=== PATIENT | male | born 1965 | race Caucasian/White ===

== ENCOUNTER 2021-08-06 01:32 | Inpatient (IN) | payer OTHER ==
[2021-08-06 03:15] LABS: EOS % 4.4 % (0-4.5); HEMATOCRIT 30.6 % (35.4-49); HEMOGLOBIN 9.6 GM/dL (11.7-16.9); LYMPH % 13.1 % (8-40); MCH 23.4 pg (25.7-33.7); MCHC 31.2 g/dl (32.0-35.9); MEAN PLT VOLUME 6.9 fl (7.5-11.1); MONO % 7.2 % (3.8-10.2); NEUT % 74.3 % (42.8-82.8); PLATELET COUNT 265 10^3/uL (134-434); RBC 4.08 M/mm3 (4.00-5.60); RDW 20.8 % (11.9-15.9)
[2021-08-06 03:31] LABS: CHLORIDE 107 mmol/L (98-107); SODIUM 144 mmol/L (136-145)
[2021-08-06 03:35] LABS: ALBUMIN 2.8 g/dl (3.4-5.0); ANION GAP 5 MMOL/L (8-16); BLOOD UREA NITROGEN 13.8 mg/dL (7-18); CALCIUM 8.3 mg/dL (8.5-10.1); CO2 32 mmol/L (21-32); GLUCOSE,RANDOM 109 mg/dL (74-106)
[2021-08-06 03:36] LABS: SGPT/ALT 17 U/L (13-61)
[2021-08-06 03:37] LABS: CREATININE 0.6 mg/dL (0.55-1.3); SGOT/AST 13 U/L (15-37)
[2021-08-06 03:38] LABS: BILIRUBIN,TOTAL 0.9 mg/dL (0.2-1)
[2021-08-06 03:40] LABS: ALK PHOS 214 U/L (45-117)
[2021-08-06] MEDS ORDERED: FUROSEMIDE 40 MG/4 ML INJECTABLE VIAL IVPUSH ONE (03:41)
[2021-08-06] MEDS ORDERED: FUROSEMIDE 40 MG/4 ML INJECTABLE VIAL ONE (03:51)
[2021-08-06 04:10] LABS: INR 2.71 (0.83-1.09); PROTHROMBIN TIME (PATIENT) 31.5 SEC (9.7-13.0)
[2021-08-06 04:12] LABS: ACTIVATED PTT 40.6 SECONDS (25.2-36.5)
[2021-08-06 05:58] LABS: ANISOCYTOSIS 2+; MACROCYTOSIS 0; OVALOCYTE 1+; PLATELET ESTIMATE NORMAL
[2021-08-06] MEDS ORDERED: FUROSEMIDE 40 MG/4 ML INJECTABLE VIAL IVPUSH SCH (12:00)
[2021-08-06] MEDS ORDERED: DOCUSATE SODIUM 100 MG CAPSULE (FP) PO PRN (12:24)
[2021-08-06] MEDS ORDERED: METOPROLOL TARTRATE 50 MG TABLET (FP) PO ONE (12:30)
[2021-08-06 13:13] VITALS: BMI 31.6
[2021-08-06] MEDS: RIVAROXABAN 20 MG TABLET PO SCH (17:53)
[2021-08-06] MEDS ORDERED: ATORVASTATIN CA 40 MG TABLET (FP) PO SCH (22:00)
[2021-08-06 23:20] LABS: CHOLESTEROL 131 mg/dL (50-200); TRIGLYCERIDES 65 mg/dL (0-150)
[2021-08-06 23:21] LABS: LDL CHOLESTEROL (ONLY SJRH) 73 mg/dL (5-100)
[2021-08-06 23:23] LABS: HDL CHOLESTEROL 50 mg/dL (40-60)
[2021-08-07 00:13] LABS: IRON SERUM 31 ug/dL (50-175); TOTAL IRON BINDING CAPACITY 345 ug/dL (250-450)
[2021-08-07] MEDS ORDERED: MELATONIN 5 MG TABLETS PO ONE (01:25)
[2021-08-07 08:00] LABS: BASO % 0.9 % (0-2.0); EOS % 3.7 % (0-4.5); HEMATOCRIT 34.9 % (35.4-49); HEMOGLOBIN 10.6 GM/dL (11.7-16.9); LYMPH % 20.8 % (8-40); MCH 23.1 pg (25.7-33.7); MCHC 30.4 g/dl (32.0-35.9); MEAN CELL VOLUME 75.9 fl (80-96); MEAN PLT VOLUME 7.5 fl (7.5-11.1); MONO % 7.5 % (3.8-10.2); NEUT % 67.1 % (42.8-82.8); PLATELET COUNT 308 10^3/uL (134-434); RDW 20.8 % (11.9-15.9); WHITE BLOOD COUNT 5.7 K/mm3 (4.0-10.0)
[2021-08-07 08:05] LABS: INR 3.36 (0.83-1.09); PROTHROMBIN TIME (PATIENT) 39.1 SEC (9.7-13.0)
[2021-08-07 08:14] LABS: CALCIUM 8.4 mg/dL (8.5-10.1)
[2021-08-07 08:15] LABS: BLOOD UREA NITROGEN 14.5 mg/dL (7-18); MAGNESIUM 2.6 mg/dL (1.8-2.4)
[2021-08-07 08:18] LABS: CREATININE 0.7 mg/dL (0.55-1.3); PHOSPHOROUS 4.7 mg/dL (2.5-4.9)
[2021-08-07 08:19] LABS: TOT PROT 6.3 g/dl (6.4-8.2)
[2021-08-07] MEDS: FUROSEMIDE 40 MG/4 ML INJECTABLE VIAL IVPUSH SCH (09:40)
[2021-08-07] MEDS: RIVAROXABAN 20 MG TABLET PO SCH (18:02)
[2021-08-07] MEDS: MELATONIN 5 MG TABLETS PO PRN (21:30)
[2021-08-07] MEDS: ATORVASTATIN CA 40 MG TABLET (FP) PO SCH (21:30)
[2021-08-08] MEDS: FUROSEMIDE 40 MG/4 ML INJECTABLE VIAL IVPUSH SCH (09:18)
[2021-08-08 11:58] LABS: HEMATOCRIT 34.3 % (35.4-49); HEMOGLOBIN 10.5 GM/dL (11.7-16.9); MCH 23.1 pg (25.7-33.7); MCHC 30.5 g/dl (32.0-35.9); MEAN CELL VOLUME 75.6 fl (80-96); MEAN PLT VOLUME 7.4 fl (7.5-11.1); PLATELET COUNT 362 10^3/uL (134-434); RBC 4.53 M/mm3 (4.00-5.60); RDW 20.8 % (11.9-15.9)
[2021-08-08 12:25] LABS: ALBUMIN 3.1 g/dl (3.4-5.0); CALCIUM 8.6 mg/dL (8.5-10.1); MAGNESIUM 2.8 mg/dL (1.8-2.4)
[2021-08-08 12:26] LABS: BLOOD UREA NITROGEN 17.5 mg/dL (7-18)
[2021-08-08 12:28] LABS: CREATININE 0.7 mg/dL (0.55-1.3)
[2021-08-08 12:30] LABS: TOT PROT 6.6 g/dl (6.4-8.2)
[2021-08-08] MEDS: RIVAROXABAN 20 MG TABLET PO SCH (17:42)
[2021-08-08] MEDS: MELATONIN 5 MG TABLETS PO PRN (21:36)
[2021-08-08] MEDS: ATORVASTATIN CA 40 MG TABLET (FP) PO SCH (21:36)
[2021-08-09 07:41] LABS: HEMATOCRIT 34.3 % (35.4-49); HEMOGLOBIN 10.5 GM/dL (11.7-16.9); MCHC 30.5 g/dl (32.0-35.9); MEAN CELL VOLUME 75.3 fl (80-96); MEAN PLT VOLUME 7.6 fl (7.5-11.1); PLATELET COUNT 338 10^3/uL (134-434); RBC 4.55 M/mm3 (4.00-5.60); RDW 20.7 % (11.9-15.9)
[2021-08-09 07:50] LABS: CALCIUM 8.6 mg/dL (8.5-10.1)
[2021-08-09 07:51] LABS: ALBUMIN 3.1 g/dl (3.4-5.0); BLOOD UREA NITROGEN 16.9 mg/dL (7-18); MAGNESIUM 2.8 mg/dL (1.8-2.4)
[2021-08-09 07:53] LABS: CREATININE 0.6 mg/dL (0.55-1.3)
[2021-08-09 07:54] LABS: TOT PROT 6.7 g/dl (6.4-8.2)
[2021-08-09 07:55] LABS: BILIRUBIN,TOTAL 0.8 mg/dL (0.2-1)
[2021-08-09] MEDS: FUROSEMIDE 40 MG/4 ML INJECTABLE VIAL IVPUSH SCH (09:31)
[2021-08-09] MEDS ORDERED: ALBUTEROL SO4 2.5/IPRATROPIUM 0.5 INH SOL 3 ML VIAL.NEB. NEB PRN (16:45)
[2021-08-09] MEDS: DIGOXIN 0.125 MG TABLET PO SCH (17:32)
[2021-08-09] MEDS: RIVAROXABAN 20 MG TABLET PO SCH (18:07)
[2021-08-09] MEDS ORDERED: SODIUM PHOSPHATE/NA BIPHOS 133 ML ENEMA PR ONE (21:31)
[2021-08-09] MEDS: POLYETHYLENE GLYCOL (HEALTHYLAX) 3350 17 GM PACKET PO SCH (22:46)
[2021-08-09] MEDS: MELATONIN 5 MG TABLETS PO PRN (22:47)
[2021-08-09] MEDS: ATORVASTATIN CA 40 MG TABLET (FP) PO SCH (22:47)
[2021-08-10 07:58] LABS: HEMATOCRIT 34.1 % (35.4-49); HEMOGLOBIN 10.7 GM/dL (11.7-16.9); MCH 23.6 pg (25.7-33.7); MCHC 31.4 g/dl (32.0-35.9); MEAN CELL VOLUME 75.2 fl (80-96); MEAN PLT VOLUME 7.2 fl (7.5-11.1); PLATELET COUNT 321 10^3/uL (134-434); RBC 4.54 M/mm3 (4.00-5.60); RDW 20.3 % (11.9-15.9); WHITE BLOOD COUNT 6.3 K/mm3 (4.0-10.0)
[2021-08-10 08:00] LABS: CALCIUM 8.6 mg/dL (8.5-10.1)
[2021-08-10 08:01] LABS: ALBUMIN 3.2 g/dl (3.4-5.0); BLOOD UREA NITROGEN 19.6 mg/dL (7-18)
[2021-08-10 08:04] LABS: CREATININE 0.7 mg/dL (0.55-1.3); PHOSPHOROUS 4.3 mg/dL (2.5-4.9)
[2021-08-10 08:05] LABS: BILIRUBIN,TOTAL 0.9 mg/dL (0.2-1)
[2021-08-10 08:06] LABS: TOT PROT 6.8 g/dl (6.4-8.2)
[2021-08-10 08:19] VITALS: BP 127/89; PULSE 85; TEMP 97.7
[2021-08-10] MEDS: DIGOXIN 0.125 MG TABLET PO SCH (09:31)
[2021-08-10] MEDS: FUROSEMIDE 40 MG/4 ML INJECTABLE VIAL IVPUSH SCH (09:31)
[2021-08-10] MEDS: POLYETHYLENE GLYCOL (HEALTHYLAX) 3350 17 GM PACKET PO SCH (09:35)
== END 2021-08-10 13:53 | disposition home or self-care (01) | DRG 291 ==
LOC: JER 01:32 → JERBED 06:15 → J7W 10:32 → J4W 21:25
PROVIDERS: ADMIT Internal Medicine
DX: I11.0 Hypertensive heart disease with heart failure (principal); I50.33 Acute on chronic diastolic (congestive) heart failure; I48.91 Unspecified atrial fibrillation; I25.10 Atherosclerotic heart disease of native coronary artery without angina pectoris; Z86.711 Personal history of pulmonary embolism; J44.9 Chronic obstructive pulmonary disease, unspecified; E78.5 Hyperlipidemia, unspecified; Z95.0 Presence of cardiac pacemaker; Z79.01 Long term (current) use of anticoagulants
CPT/HCPCS: 36415; 71275-TC; 80053; 80061; 83036; 83540; 83550; 83735; 83880; 84100; 84443; 84484; 85025; 85027; 85610; 85730; 93005; 93010; 93306-TC; 97116-GP; 97161-GP; 99285-25; C9803; Q9967; U0003; U0005

== ENCOUNTER 2022-01-17 15:54 | Inpatient (IN) | payer OTHER ==
[2022-01-17] MEDS ORDERED: ALBUTEROL SO4 2.5/IPRATROPIUM 0.5 INH SOL 3 ML VIAL.NEB. NEB ONE ×2 (17:24→18:47)
[2022-01-17 18:20] LABS: EOS % 2.4 % (0-4.5); HEMATOCRIT 29.3 % (35.4-49); LYMPH % 15.6 % (8-40); MCHC 30.7 g/dl (32.0-35.9); MEAN CELL VOLUME 59.4 fl (80-96); MONO % 7.3 % (3.8-10.2); NEUT % 73.7 % (42.8-82.8); PLATELET COUNT 379 10^3/uL (134-434); RBC 4.93 M/mm3 (4.00-5.60); RDW 20.1 % (11.9-15.9); WHITE BLOOD COUNT 8.5 K/mm3 (4.0-10.0)
[2022-01-17 18:28] LABS: MCH 18.2 pg (25.7-33.7)
[2022-01-17 18:36] LABS: ALBUMIN 3.2 g/dl (3.4-5.0); CALCIUM 8.2 mg/dL (8.5-10.1)
[2022-01-17 18:37] LABS: BLOOD UREA NITROGEN 15.6 mg/dL (7-18); MAGNESIUM 2.3 mg/dL (1.8-2.4)
[2022-01-17 18:40] LABS: CREATININE 0.8 mg/dL (0.55-1.3)
[2022-01-17 18:41] LABS: BILIRUBIN,TOTAL 0.8 mg/dL (0.2-1); TOT PROT 6.7 g/dl (6.4-8.2)
[2022-01-17 18:45] LABS: N-TERMINAL BNP 1989.3 pg/ml (5-125)
[2022-01-17] MEDS ORDERED: FUROSEMIDE 40 MG/4 ML INJECTABLE VIAL IVPUSH ONE (18:58)
[2022-01-17] MEDS ORDERED: predniSONE 20 MG TABLET (UD) PO ONE (20:15)
[2022-01-17] MEDS ORDERED: predniSONE 20 MG TABLET (UD) ONE (20:15)
[2022-01-17] MEDS ORDERED: predniSONE 10 MG TABLET (UD) ONE (20:15)
[2022-01-17] MEDS ORDERED: FUROSEMIDE 40 MG/4 ML INJECTABLE VIAL ONE (20:16)
[2022-01-17 21:11] LABS: ANISOCYTOSIS 3+; MACROCYTOSIS 1+; OVALOCYTE 1+
[2022-01-17 21:13] LABS: INR 1.74 (0.83-1.09); PROTHROMBIN TIME (PATIENT) 20.1 SEC (9.7-13.0)
[2022-01-17 21:16] LABS: PLATELET ESTIMATE ADEQUATE
[2022-01-17] MEDS ORDERED: ACETAMINOPHEN 325 MG TABLET (FP) PO PRN (22:23)
[2022-01-17] MEDS ORDERED: POLYETHYLENE GLYCOL (HEALTHYLAX) 3350 17 GM PACKET PO PRN (22:23)
[2022-01-18] MEDS ORDERED: ACETAMINOPHEN 325 MG TABLET (FP) ONE (01:24)
[2022-01-18] MEDS ORDERED: ASPIRIN 81 MG CHEWABLE TABLETS PO ONE (01:32)
[2022-01-18] MEDS ORDERED: ASPIRIN 81 MG CHEWABLE TABLETS ONE (02:18)
[2022-01-18 03:05] LABS: CALCIUM 8.8 mg/dL (8.5-10.1)
[2022-01-18 03:06] LABS: BLOOD UREA NITROGEN 19.1 mg/dL (7-18)
[2022-01-18] MEDS ORDERED: predniSONE 20 MG TABLET (UD) PO ONE (06:49)
[2022-01-18 07:31] LABS: HEMATOCRIT 30.5 % (35.4-49); HEMOGLOBIN 9.2 GM/dL (11.7-16.9); MCHC 30.3 g/dl (32.0-35.9); MEAN CELL VOLUME 59.4 fl (80-96); MEAN PLT VOLUME 8.4 fl (7.5-11.1); PLATELET COUNT 396 10^3/uL (134-434); RBC 5.13 M/mm3 (4.00-5.60); RDW 20.1 % (11.9-15.9); WHITE BLOOD COUNT 5.8 K/mm3 (4.0-10.0)
[2022-01-18 09:51] LABS: ANISOCYTOSIS 2+; MACROCYTOSIS 0
[2022-01-18] MEDS ORDERED: FERROUS SO4 325 MG TABLET (FP) PO ONE (10:11)
[2022-01-18] MEDS ORDERED: FUROSEMIDE 40 MG TABLET (FP) PO SCH (10:15)
[2022-01-18] MEDS ORDERED: METOPROLOL TARTRATE 25 MG TABLET (FP) PO SCH (10:15)
[2022-01-18 11:22] LABS: GLUCOSE,RANDOM 164 mg/dL (74-106)
[2022-01-18 11:23] LABS: CALCIUM 8.5 mg/dL (8.5-10.1); CHLORIDE 101 mmol/L (98-107); CO2 28 mmol/L (21-32); CREATININE 0.9 mg/dL (0.55-1.3); SODIUM 137 mmol/L (136-145)
[2022-01-18] MEDS ORDERED: METOPROLOL TARTRATE 25 MG TABLET (FP) ONE (12:07)
[2022-01-18] MEDS ORDERED: FAMOTIDINE 20 MG TABLET ONE (12:07)
[2022-01-18] MEDS ORDERED: FUROSEMIDE 40 MG TABLET (FP) ONE ×2 (12:07→17:47)
[2022-01-18] MEDS ORDERED: FERROUS SO4 325 MG TABLET (FP) ONE (12:08)
[2022-01-18] MEDS ORDERED: DULoxetine HCL 30 MG CAPSULE.DR PO ONE (12:08)
[2022-01-18] MEDS: DULoxetine HCL 30 MG CAPSULE.DR PO SCH (12:30)
[2022-01-18] MEDS: FAMOTIDINE 20 MG TABLET PO SCH (12:30)
[2022-01-18] MEDS: INSULIN SLIDING SCALE (NOVOLOG) 1 VIAL SQ SCH ×3 (12:52→22:43)
[2022-01-18] MEDS ORDERED: MONTELUKAST NA 10 MG TABLET ONE (17:44)
[2022-01-18] MEDS: FUROSEMIDE 40 MG TABLET (FP) PO SCH (17:48)
[2022-01-18] MEDS: FLUTICASONE/UMECLIDIN/VILANTER(100-62.5-25 TRELEGY ELLIPTA) INAHLER IH SCH (17:56)
[2022-01-18] MEDS: ALLOPURINOL 100 MG TABLET (FP) PO SCH (17:56)
[2022-01-18] MEDS: MONTELUKAST NA 10 MG TABLET PO SCH (17:57)
[2022-01-18] MEDS: METOPROLOL TARTRATE 25 MG TABLET (FP) PO SCH ×2 (17:59→23:03)
[2022-01-18] MEDS ORDERED: QUEtiapine FUMARATE 25 MG TABLET ONE (22:56)
[2022-01-18] MEDS ORDERED: ATORVASTATIN CA 40 MG TABLET (FP) ONE (22:56)
[2022-01-18] MEDS: QUEtiapine FUMARATE 25 MG TABLET PO SCH (23:03)
[2022-01-18] MEDS: ATORVASTATIN CA 40 MG TABLET (FP) PO SCH (23:03)
[2022-01-19 03:58] VITALS: BMI 32.1
[2022-01-19] MEDS: INSULIN SLIDING SCALE (NOVOLOG) 1 VIAL SQ SCH ×4 (06:00→21:55)
[2022-01-19] MEDS: METOPROLOL TARTRATE 25 MG TABLET (FP) PO SCH ×3 (06:32→21:27)
[2022-01-19] MEDS: FUROSEMIDE 40 MG TABLET (FP) PO SCH ×2 (06:33→13:10)
[2022-01-19 07:33] LABS: HEMATOCRIT 32.1 % (35.4-49); HEMOGLOBIN 9.6 GM/dL (11.7-16.9); MCHC 29.8 g/dl (32.0-35.9); MEAN CELL VOLUME 60.6 fl (80-96); MEAN PLT VOLUME 8.2 fl (7.5-11.1); PLATELET COUNT 440 10^3/uL (134-434); RDW 20.2 % (11.9-15.9); WHITE BLOOD COUNT 8.2 K/mm3 (4.0-10.0)
[2022-01-19 07:46] LABS: CALCIUM 8.5 mg/dL (8.5-10.1)
[2022-01-19 07:47] LABS: ALBUMIN 3.4 g/dl (3.4-5.0); BLOOD UREA NITROGEN 28.8 mg/dL (7-18); MAGNESIUM 2.7 mg/dL (1.8-2.4)
[2022-01-19 07:50] LABS: CREATININE 0.9 mg/dL (0.55-1.3)
[2022-01-19 07:52] LABS: BILIRUBIN,TOTAL 1.1 mg/dL (0.2-1)
[2022-01-19] MEDS: FLUTICASONE/UMECLIDIN/VILANTER(100-62.5-25 TRELEGY ELLIPTA) INAHLER IH SCH (09:56)
[2022-01-19] MEDS: DULoxetine HCL 30 MG CAPSULE.DR PO SCH (09:56)
[2022-01-19] MEDS: ALLOPURINOL 100 MG TABLET (FP) PO SCH (09:56)
[2022-01-19] MEDS: MONTELUKAST NA 10 MG TABLET PO SCH (09:56)
[2022-01-19] MEDS: FAMOTIDINE 20 MG TABLET PO SCH (09:56)
[2022-01-19] MEDS ORDERED: FERROUS SO4 325 MG TABLET (FP) PO SCH (10:11)
[2022-01-19 12:42] LABS: ANISOCYTOSIS 3+; MACROCYTOSIS 0
[2022-01-19] MEDS: MINERAL OIL/PET HY-PHL TOPICAL OINTMENT 454 GM JAR TP SCH ×2 (16:00→21:28)
[2022-01-19] MEDS ORDERED: FERROUS SO4 325 MG TABLET (FP) PO ONE (16:22)
[2022-01-19] MEDS ORDERED: SENNOSIDES 8.6MG TABLET (FP) PO PRN (16:24)
[2022-01-19] MEDS: ATORVASTATIN CA 40 MG TABLET (FP) PO SCH (21:27)
[2022-01-19] MEDS: QUEtiapine FUMARATE 25 MG TABLET PO SCH (21:27)
[2022-01-20] MEDS: METOPROLOL TARTRATE 25 MG TABLET (FP) PO SCH ×3 (05:54→21:02)
[2022-01-20] MEDS: FUROSEMIDE 40 MG TABLET (FP) PO SCH ×2 (05:54→15:01)
[2022-01-20] MEDS: INSULIN SLIDING SCALE (NOVOLOG) 1 VIAL SQ SCH ×4 (06:07→21:13)
[2022-01-20 07:25] LABS: BASO % 1.3 % (0-2.0); EOS % 3.4 % (0-4.5); HEMATOCRIT 31.7 % (35.4-49); HEMOGLOBIN 9.5 GM/dL (11.7-16.9); LYMPH % 22.2 % (8-40); MEAN CELL VOLUME 60.4 fl (80-96); MEAN PLT VOLUME 8.4 fl (7.5-11.1); MONO % 7.6 % (3.8-10.2); NEUT % 65.5 % (42.8-82.8); PLATELET COUNT 411 10^3/uL (134-434); RBC 5.24 M/mm3 (4.00-5.60); RDW 20.4 % (11.9-15.9); WHITE BLOOD COUNT 7.9 K/mm3 (4.0-10.0)
[2022-01-20] MEDS ORDERED: ENOXAPARIN NA (PORCINE) 100 MG/1 ML DISP.SYRIN SQ ONE (07:25)
[2022-01-20 07:33] LABS: ALBUMIN 3.4 g/dl (3.4-5.0); CALCIUM 8.4 mg/dL (8.5-10.1)
[2022-01-20 07:34] LABS: BLOOD UREA NITROGEN 27.3 mg/dL (7-18)
[2022-01-20 07:37] LABS: CREATININE 0.8 mg/dL (0.55-1.3)
[2022-01-20 07:38] LABS: BILIRUBIN,TOTAL 1.2 mg/dL (0.2-1); TOT PROT 7.1 g/dl (6.4-8.2)
[2022-01-20 08:40] LABS: MCH 18.1 pg (25.7-33.7)
[2022-01-20] MEDS: DULoxetine HCL 30 MG CAPSULE.DR PO SCH (09:36)
[2022-01-20] MEDS: ALLOPURINOL 100 MG TABLET (FP) PO SCH (09:37)
[2022-01-20] MEDS: MONTELUKAST NA 10 MG TABLET PO SCH (09:37)
[2022-01-20] MEDS: FAMOTIDINE 20 MG TABLET PO SCH (09:37)
[2022-01-20] MEDS: MINERAL OIL/PET HY-PHL TOPICAL OINTMENT 454 GM JAR TP SCH ×2 (09:47→22:17)
[2022-01-20] MEDS: FLUTICASONE/UMECLIDIN/VILANTER(100-62.5-25 TRELEGY ELLIPTA) INAHLER IH SCH (09:47)
[2022-01-20 11:48] LABS: ACTIVATED PTT 33.3 SECONDS (25.2-36.5); INR 1.27 (0.83-1.09); PROTHROMBIN TIME (PATIENT) 14.6 SEC (9.7-13.0)
[2022-01-20 12:02] LABS: ANISOCYTOSIS 2+; MACROCYTOSIS 0; OVALOCYTE 2+; TEAR DROP CELLS 2+
[2022-01-20] MEDS ORDERED: WARFARIN NA 5 MG TABLET PO SCH (18:00)
[2022-01-20] MEDS: QUEtiapine FUMARATE 25 MG TABLET PO SCH ×2 (21:02→21:13)
[2022-01-20] MEDS: ATORVASTATIN CA 40 MG TABLET (FP) PO SCH (21:02)
[2022-01-20] MEDS: ENOXAPARIN NA (PORCINE) 100 MG/1 ML DISP.SYRIN SQ SCH (21:03)
[2022-01-21] MEDS: FUROSEMIDE 40 MG TABLET (FP) PO SCH ×2 (05:28→13:54)
[2022-01-21] MEDS: METOPROLOL TARTRATE 25 MG TABLET (FP) PO SCH ×2 (05:28→13:54)
[2022-01-21] MEDS: INSULIN SLIDING SCALE (NOVOLOG) 1 VIAL SQ SCH ×2 (06:15→11:43)
[2022-01-21 06:30] VITALS: PULSE 78
[2022-01-21 07:46] LABS: HEMATOCRIT 31.4 % (35.4-49); HEMOGLOBIN 9.1 GM/dL (11.7-16.9); MCHC 29.1 g/dl (32.0-35.9); MEAN CELL VOLUME 61.3 fl (80-96); MEAN PLT VOLUME 8.3 fl (7.5-11.1); PLATELET COUNT 399 10^3/uL (134-434); RBC 5.13 M/mm3 (4.00-5.60); RDW 20.4 % (11.9-15.9); WHITE BLOOD COUNT 8.3 K/mm3 (4.0-10.0)
[2022-01-21 07:53] LABS: INR 1.25 (0.83-1.09); PROTHROMBIN TIME (PATIENT) 14.4 SEC (9.7-13.0)
[2022-01-21 08:07] LABS: MCH 17.8 pg (25.7-33.7)
[2022-01-21 08:13] LABS: ALBUMIN 3.1 g/dl (3.4-5.0); BLOOD UREA NITROGEN 23.9 mg/dL (7-18); CALCIUM 8.2 mg/dL (8.5-10.1); MAGNESIUM 2.7 mg/dL (1.8-2.4)
[2022-01-21 08:16] LABS: PHOSPHOROUS 3.6 mg/dL (2.5-4.9)
[2022-01-21 08:17] LABS: CREATININE 0.9 mg/dL (0.55-1.3)
[2022-01-21 08:18] LABS: BILIRUBIN,TOTAL 1.1 mg/dL (0.2-1); TOT PROT 6.5 g/dl (6.4-8.2)
[2022-01-21] MEDS: MONTELUKAST NA 10 MG TABLET PO SCH (10:00)
[2022-01-21] MEDS: ALLOPURINOL 100 MG TABLET (FP) PO SCH (10:00)
[2022-01-21] MEDS: FAMOTIDINE 20 MG TABLET PO SCH (10:00)
[2022-01-21] MEDS: FLUTICASONE/UMECLIDIN/VILANTER(100-62.5-25 TRELEGY ELLIPTA) INAHLER IH SCH (10:00)
[2022-01-21] MEDS: MINERAL OIL/PET HY-PHL TOPICAL OINTMENT 454 GM JAR TP SCH (10:00)
[2022-01-21] MEDS: DULoxetine HCL 30 MG CAPSULE.DR PO SCH (10:00)
[2022-01-21] MEDS: ENOXAPARIN NA (PORCINE) 100 MG/1 ML DISP.SYRIN SQ SCH (10:00)
[2022-01-21 10:11] VITALS: BP 107/56; TEMP 98
== END 2022-01-21 14:10 | disposition left against medical advice (07) | DRG 293 ==
LOC: JER 15:54 → JERBED 22:27 → J4W 01-19 00:21 → OBSVTOIN 01-19 15:26
PROVIDERS: ADMIT Hospitalist; ATTEND Internal Medicine
DX: I11.0 Hypertensive heart disease with heart failure (principal); I25.10 Atherosclerotic heart disease of native coronary artery without angina pectoris; I50.32 Chronic diastolic (congestive) heart failure; I48.91 Unspecified atrial fibrillation; J44.9 Chronic obstructive pulmonary disease, unspecified; I44.7 Left bundle-branch block, unspecified; I25.2 Old myocardial infarction; I42.2 Other hypertrophic cardiomyopathy; M1A.9XX0 Chronic gout, unspecified, without tophus (tophi); E66.9 Obesity, unspecified; Z68.31 Body mass index [BMI] 31.0-31.9, adult; G25.81 Restless legs syndrome; D50.9 Iron deficiency anemia, unspecified; K59.00 Constipation, unspecified; Z95.0 Presence of cardiac pacemaker; Z99.81 Dependence on supplemental oxygen; Z86.711 Personal history of pulmonary embolism
CPT/HCPCS: 0241U-QW; 36415; 71045-TC-FY; 76700-TC; 80048; 80053; 82105; 82272; 82728; 82962; 82977; 83540; 83550; 83735; 83880; 84100; 84484; 85025; 85027; 85045; 85610; 85730; 86140; 86705; 86709; 86803; 87340; 87517; 93005; 93010; 93306-TC; 94761; 97116-GP; 97161-GP; 99285-25; G0378

== ENCOUNTER 2022-09-09 02:58 | Emergency (ER) | payer OTHER ==
[2022-09-09 03:02] VITALS: BP 105/70; PULSE 72; RESP 18; TEMP 97.6; BMI 30.4
[2022-09-09] MEDS ORDERED: ALBUTEROL SO4 2.5/IPRATROPIUM 0.5 INH SOL 3 ML VIAL.NEB. NEB ONE ×2 (03:34→03:55)
[2022-09-09 04:05] LABS: BASO % 0.9 % (0-2.0); HEMATOCRIT 31.3 % (35.4-49); HEMOGLOBIN 9.5 GM/dL (11.7-16.9); LYMPH % 16.3 % (8-40); MCH 21.4 pg (25.7-33.7); MCHC 30.2 g/dl (32.0-35.9); MEAN CELL VOLUME 70.8 fl (80-96); NEUT % 73.8 % (42.8-82.8); PLATELET COUNT 335 10^3/uL (134-434); RBC 4.42 M/mm3 (4.00-5.60); RDW 25.1 % (11.9-15.9); WHITE BLOOD COUNT 7.7 K/mm3 (4.0-10.0)
[2022-09-09 04:25] LABS: ALBUMIN 2.8 g/dl (3.4-5.0); BLOOD UREA NITROGEN 21.4 mg/dL (7-18); CALCIUM 8.1 mg/dL (8.5-10.1)
[2022-09-09 04:28] LABS: CREATININE 0.9 mg/dL (0.55-1.3)
[2022-09-09 04:30] LABS: BILIRUBIN,TOTAL 0.6 mg/dL (0.2-1); TOT PROT 6.2 g/dl (6.4-8.2)
== END 2022-09-09 06:10 | disposition home or self-care (01) ==
LOC: JER 02:58
PROC: 3E0F7GC Introduction of Other Therapeutic Substance into Respiratory Tract, Via Natural or Artificial Opening (ICD-10-PCS; principal; 2022-09-09)
DX: S80.211A Abrasion, right knee, initial encounter (principal); S50.312A Abrasion of left elbow, initial encounter; W01.0XXA Fall on same level from slipping, tripping and stumbling without subsequent striking against object, initial encounter
CPT/HCPCS: 36415; 70450-TC; 71045-TC-FY; 72125-TC; 72170-TC-FY; 73070-TC-LT-FY; 73562-TC-RT-FY; 80053; 84484; 85025; 93005; 93010; 99285-25

== ENCOUNTER 2022-10-19 11:11 | Inpatient (IN) | payer OTHER ==
[2022-10-19 12:31] LABS: BASO % 1.3 % (0-2.0); EOS % 3.3 % (0-4.5); HEMATOCRIT 34.3 % (35.4-49); HEMOGLOBIN 10.4 GM/dL (11.7-16.9); LYMPH % 14.8 % (8-40); MCH 20.8 pg (25.7-33.7); MCHC 30.5 g/dl (32.0-35.9); MEAN CELL VOLUME 68.4 fl (80-96); MEAN PLT VOLUME 6.8 fl (7.5-11.1); MONO % 8.9 % (3.8-10.2); NEUT % 71.7 % (42.8-82.8); PLATELET COUNT 416 10^3/uL (134-434); RBC 5.01 M/mm3 (4.00-5.60); RDW 21.3 % (11.9-15.9)
[2022-10-19] MEDS ORDERED: VANCOMYCIN/WATER 2 GM/400 ML PREMIX BAG IVPB ONE (12:34)
[2022-10-19 12:38] LABS: INR 1.31 (0.83-1.09); PROTHROMBIN TIME (PATIENT) 15.2 SEC (9.7-13.0)
[2022-10-19 12:58] LABS: CALCIUM 8.7 mg/dL (8.5-10.1)
[2022-10-19 12:59] LABS: BLOOD UREA NITROGEN 18.8 mg/dL (7-18)
[2022-10-19 13:02] LABS: CREATININE 0.8 mg/dL (0.55-1.3)
[2022-10-19 13:03] LABS: TOT PROT 6.6 g/dl (6.4-8.2)
[2022-10-19 13:04] LABS: BILIRUBIN,TOTAL 0.6 mg/dL (0.2-1)
[2022-10-19 13:49] LABS: ANISOCYTOSIS 2+
[2022-10-19] MEDS ORDERED: ACETAMINOPHEN 325 MG TABLET (FP) PO ONE (14:27)
[2022-10-19] MEDS ORDERED: ACETAMINOPHEN 325 MG TABLET (FP) ONE (14:28)
[2022-10-19 17:56] VITALS: BMI 34.2
[2022-10-19] MEDS: ACETAMINOPHEN 325 MG TABLET (FP) PO PRN (20:31)
[2022-10-19] MEDS: FAMOTIDINE 20 MG TABLET PO SCH (22:10)
[2022-10-19] MEDS: METOPROLOL TARTRATE 25 MG TABLET (FP) PO SCH (22:10)
[2022-10-19] MEDS: QUEtiapine FUMARATE 25 MG TABLET PO SCH (22:10)
[2022-10-19 22:22] LABS: PH,URINE 5.5 (5.0-8.0); URINE APPEARANCE CLEAR; URINE BILIRUBIN NEGATIVE (NEGATIVE); URINE COLOR YELLOW; URINE GLUCOSE (UA) 2+ (NEGATIVE); URINE KETONE NEGATIVE (NEGATIVE); URINE LEUK ESTERASE NEGATIVE (NEGATIVE); URINE NITRITE NEGATIVE (NEGATIVE); URINE PROTEIN NEGATIVE (NEGATIVE)
[2022-10-20] MEDS: ENOXAPARIN NA (PORCINE) 120 MG/0.8 ML DISP.SYRIN SQ SCH ×3 (00:55→17:31)
[2022-10-20] MEDS: FUROSEMIDE 40 MG TABLET (FP) PO SCH ×2 (05:24→13:26)
[2022-10-20] MEDS: METOPROLOL TARTRATE 25 MG TABLET (FP) PO SCH ×3 (05:24→21:27)
[2022-10-20] MEDS: ALLOPURINOL 100 MG TABLET (FP) PO SCH (09:35)
[2022-10-20] MEDS: ASPIRIN 81 MG CHEWABLE TABLETS PO SCH (09:36)
[2022-10-20] MEDS: FAMOTIDINE 20 MG TABLET PO SCH ×2 (09:36→21:27)
[2022-10-20] MEDS: DULoxetine HCL 30 MG CAPSULE.DR PO SCH (09:36)
[2022-10-20 10:34] LABS: ALBUMIN 2.6 g/dl (3.4-5.0)
[2022-10-20 10:35] LABS: MAGNESIUM 2.4 mg/dL (1.8-2.4)
[2022-10-20 10:37] LABS: CREATININE 0.8 mg/dL (0.55-1.3)
[2022-10-20 10:38] LABS: BILIRUBIN,TOTAL 0.5 mg/dL (0.2-1)
[2022-10-20] MEDS: FLUTICASONE/UMECLIDIN/VILANTER(100-62.5-25 TRELEGY ELLIPTA) INAHLER IH SCH (10:43)
[2022-10-20 10:45] LABS: BASO % 1.2 % (0-2.0); EOS % 5.1 % (0-4.5); HEMATOCRIT 33.4 % (35.4-49); LYMPH % 20.7 % (8-40); MCH 20.8 pg (25.7-33.7); MCHC 29.9 g/dl (32.0-35.9); MEAN CELL VOLUME 69.6 fl (80-96); MEAN PLT VOLUME 6.9 fl (7.5-11.1); MONO % 8.9 % (3.8-10.2); NEUT % 64.1 % (42.8-82.8); PLATELET COUNT 367 10^3/uL (134-434); RDW 21.9 % (11.9-15.9); WHITE BLOOD COUNT 5.1 K/mm3 (4.0-10.0)
[2022-10-20] MEDS: ACETAMINOPHEN 325 MG TABLET (FP) PO PRN (11:35)
[2022-10-20] MEDS: CEFAZOLIN SODIUM 2 GM in DEXTROSE 5%-WATER 100 ML IVPB SCH ×2 (15:05→17:46)
[2022-10-20] MEDS: INSULIN SLIDING SCALE (NOVOLOG) 1 VIAL SQ SCH ×2 (16:47→21:38)
[2022-10-20] MEDS ORDERED: ONDANSETRON 4 MG/2 ML VIAL IVPUSH ONE (19:12)
[2022-10-20] MEDS: ATORVASTATIN CA 40 MG TABLET (FP) PO SCH (21:27)
[2022-10-20] MEDS: MONTELUKAST NA 10 MG TABLET PO SCH (21:27)
[2022-10-20] MEDS: QUEtiapine FUMARATE 25 MG TABLET PO SCH (21:28)
[2022-10-21] MEDS: CEFAZOLIN SODIUM 2 GM in DEXTROSE 5%-WATER 100 ML IVPB SCH ×2 (03:00→11:04)
[2022-10-21] MEDS: FUROSEMIDE 40 MG TABLET (FP) PO SCH ×2 (05:21→14:11)
[2022-10-21] MEDS: METOPROLOL TARTRATE 25 MG TABLET (FP) PO SCH ×3 (05:21→21:04)
[2022-10-21] MEDS: ENOXAPARIN NA (PORCINE) 120 MG/0.8 ML DISP.SYRIN SQ SCH ×2 (05:21→18:18)
[2022-10-21] MEDS: INSULIN SLIDING SCALE (NOVOLOG) 1 VIAL SQ SCH ×4 (06:02→21:10)
[2022-10-21 10:35] LABS: CALCIUM 8.2 mg/dL (8.5-10.1)
[2022-10-21 10:36] LABS: ALBUMIN 2.7 g/dl (3.4-5.0); BLOOD UREA NITROGEN 21.5 mg/dL (7-18)
[2022-10-21 10:39] LABS: CREATININE 0.9 mg/dL (0.55-1.3)
[2022-10-21 10:41] LABS: BILIRUBIN,TOTAL 0.5 mg/dL (0.2-1); TOT PROT 6.5 g/dl (6.4-8.2)
[2022-10-21 10:42] LABS: URIC ACID 6.2 mg/dL (2.6-7.2)
[2022-10-21 11:02] LABS: HEMATOCRIT 34.2 % (35.4-49); HEMOGLOBIN 10.4 GM/dL (11.7-16.9); MCHC 30.5 g/dl (32.0-35.9); MEAN CELL VOLUME 68.7 fl (80-96); PLATELET COUNT 372 10^3/uL (134-434); RBC 4.97 M/mm3 (4.00-5.60); RDW 21.3 % (11.9-15.9); WHITE BLOOD COUNT 5.7 K/mm3 (4.0-10.0)
[2022-10-21] MEDS: DULoxetine HCL 30 MG CAPSULE.DR PO SCH (11:04)
[2022-10-21] MEDS: ALLOPURINOL 100 MG TABLET (FP) PO SCH (11:05)
[2022-10-21] MEDS: FAMOTIDINE 20 MG TABLET PO SCH ×2 (11:05→21:04)
[2022-10-21] MEDS: ASPIRIN 81 MG CHEWABLE TABLETS PO SCH (11:05)
[2022-10-21] MEDS: FLUTICASONE/UMECLIDIN/VILANTER(100-62.5-25 TRELEGY ELLIPTA) INAHLER IH SCH (11:06)
[2022-10-21] MEDS: ACETAMINOPHEN 325 MG TABLET (FP) PO PRN (14:10)
[2022-10-21] MEDS ORDERED: VANCOMYCIN 1 GRAM (PRE-DOCKED) 1,000 MG/250 ML BAG IVPB SCH (17:15)
[2022-10-21] MEDS ORDERED: VANCOMYCIN/WATER FOR INJ (PEG) 1,000 MG/250 ML BAG IVPB SCH (18:00)
[2022-10-21] MEDS: VANCOMYCIN/WATER FOR INJ (PEG) 1,000 MG/200 ML BAG IVPB SCH (18:17)
[2022-10-21] MEDS: MONTELUKAST NA 10 MG TABLET PO SCH (21:04)
[2022-10-21] MEDS: QUEtiapine FUMARATE 25 MG TABLET PO SCH (21:05)
[2022-10-21] MEDS: ATORVASTATIN CA 40 MG TABLET (FP) PO SCH (21:05)
[2022-10-22] MEDS: FUROSEMIDE 40 MG TABLET (FP) PO SCH ×2 (06:19→13:39)
[2022-10-22] MEDS: ENOXAPARIN NA (PORCINE) 120 MG/0.8 ML DISP.SYRIN SQ SCH ×2 (06:19→18:07)
[2022-10-22] MEDS: METOPROLOL TARTRATE 25 MG TABLET (FP) PO SCH ×4 (06:19→22:29)
[2022-10-22] MEDS: VANCOMYCIN/WATER FOR INJ (PEG) 1,000 MG/200 ML BAG IVPB SCH ×2 (06:19→18:07)
[2022-10-22] MEDS: INSULIN SLIDING SCALE (NOVOLOG) 1 VIAL SQ SCH ×5 (06:23→22:33)
[2022-10-22] MEDS: ASPIRIN 81 MG CHEWABLE TABLETS PO SCH (09:16)
[2022-10-22] MEDS: ALLOPURINOL 100 MG TABLET (FP) PO SCH (09:17)
[2022-10-22] MEDS: DULoxetine HCL 30 MG CAPSULE.DR PO SCH (09:17)
[2022-10-22] MEDS: FLUTICASONE/UMECLIDIN/VILANTER(100-62.5-25 TRELEGY ELLIPTA) INAHLER IH SCH (09:17)
[2022-10-22] MEDS: FAMOTIDINE 20 MG TABLET PO SCH ×3 (09:17→22:29)
[2022-10-22] MEDS: ACETAMINOPHEN 325 MG TABLET (FP) PO PRN (11:56)
[2022-10-22] MEDS: ATORVASTATIN CA 40 MG TABLET (FP) PO SCH ×2 (21:52→22:29)
[2022-10-22] MEDS: MONTELUKAST NA 10 MG TABLET PO SCH ×2 (21:52→22:29)
[2022-10-22] MEDS: QUEtiapine FUMARATE 25 MG TABLET PO SCH ×2 (21:52→23:20)
[2022-10-23] MEDS: FUROSEMIDE 40 MG TABLET (FP) PO SCH ×2 (05:38→14:17)
[2022-10-23] MEDS: METOPROLOL TARTRATE 25 MG TABLET (FP) PO SCH ×4 (05:39→22:32)
[2022-10-23] MEDS: VANCOMYCIN/WATER FOR INJ (PEG) 1,000 MG/200 ML BAG IVPB SCH ×2 (05:39→18:19)
[2022-10-23] MEDS: ENOXAPARIN NA (PORCINE) 120 MG/0.8 ML DISP.SYRIN SQ SCH ×2 (06:32→18:20)
[2022-10-23] MEDS: INSULIN SLIDING SCALE (NOVOLOG) 1 VIAL SQ SCH ×4 (06:33→22:12)
[2022-10-23] MEDS: DULoxetine HCL 30 MG CAPSULE.DR PO SCH (11:05)
[2022-10-23] MEDS: FAMOTIDINE 20 MG TABLET PO SCH ×3 (11:05→22:32)
[2022-10-23] MEDS: ASPIRIN 81 MG CHEWABLE TABLETS PO SCH (11:05)
[2022-10-23] MEDS: ALLOPURINOL 100 MG TABLET (FP) PO SCH (11:05)
[2022-10-23] MEDS: FLUTICASONE/UMECLIDIN/VILANTER(100-62.5-25 TRELEGY ELLIPTA) INAHLER IH SCH (11:10)
[2022-10-23] MEDS: ATORVASTATIN CA 40 MG TABLET (FP) PO SCH ×2 (22:11→22:34)
[2022-10-23] MEDS: QUEtiapine FUMARATE 25 MG TABLET PO SCH ×2 (22:12→22:32)
[2022-10-23] MEDS: MONTELUKAST NA 10 MG TABLET PO SCH (22:12)
[2022-10-24] MEDS: INSULIN SLIDING SCALE (NOVOLOG) 1 VIAL SQ SCH ×4 (06:29→23:14)
[2022-10-24] MEDS: METOPROLOL TARTRATE 25 MG TABLET (FP) PO SCH ×3 (06:32→23:14)
[2022-10-24] MEDS: VANCOMYCIN/WATER FOR INJ (PEG) 1,000 MG/200 ML BAG IVPB SCH ×2 (06:32→17:34)
[2022-10-24] MEDS: FUROSEMIDE 40 MG TABLET (FP) PO SCH ×2 (06:32→17:35)
[2022-10-24] MEDS: ALLOPURINOL 100 MG TABLET (FP) PO SCH (10:04)
[2022-10-24] MEDS: ASPIRIN 81 MG CHEWABLE TABLETS PO SCH (10:04)
[2022-10-24] MEDS: DULoxetine HCL 30 MG CAPSULE.DR PO SCH (10:04)
[2022-10-24] MEDS: FLUTICASONE/UMECLIDIN/VILANTER(100-62.5-25 TRELEGY ELLIPTA) INAHLER IH SCH (10:04)
[2022-10-24] MEDS: FAMOTIDINE 20 MG TABLET PO SCH ×2 (10:04→23:08)
[2022-10-24] MEDS ORDERED: HEPARIN NA (PORCINE) 5,000 UNITS/ML 1ML VIAL ONE (12:41)
[2022-10-24] MEDS ORDERED: LIDOCAINE HCL 1%, 10 MG/ML (10ML VIAL) MDV ONE (12:41)
[2022-10-24] MEDS ORDERED: MIDAZOLAM HCL 2 MG/2 ML SINGLE DOSE VIAL ONE (13:33)
[2022-10-24] MEDS ORDERED: ceFAZolin SODIUM 1 GM VIAL IVPB ONE (13:47)
[2022-10-24] MEDS ORDERED: LIDOCAINE HCL 1%, 10 MG/ML (20ML VIAL) NR ONE ×3 (13:53→13:54)
[2022-10-24] MEDS ORDERED: ONDANSETRON 4 MG/2 ML VIAL IVPUSH PRN ×2 (14:00→15:12)
[2022-10-24] MEDS ORDERED: oxyCODONE HCL 5 MG TABLET PO PRN ×2 (14:00→15:12)
[2022-10-24] MEDS ORDERED: LACTATED RINGERS SOLUTION 1,000 ML IV SCH (14:00)
[2022-10-24] MEDS ORDERED: PROPOFOL 20 ML ONE (14:01)
[2022-10-24] MEDS ORDERED: HEPARIN NA (PORCINE) 5,000 UNITS/ML 1ML VIAL SQ ONE ×2 (14:06)
[2022-10-24] MEDS ORDERED: PROTAMINE SULFATE 50 MG/5 ML VIAL ONE (14:42)
[2022-10-24] MEDS ORDERED: ACETAMINOPHEN 325 MG TABLET (FP) PO PRN (15:12)
[2022-10-24] MEDS ORDERED: ONDANSETRON 4 MG/2 ML VIAL ONE (15:35)
[2022-10-24] MEDS: CLOPIDOGREL BISULFATE 75 MG TABLET (FP) PO SCH (17:34)
[2022-10-24] MEDS: QUEtiapine FUMARATE 25 MG TABLET PO SCH (23:08)
[2022-10-24] MEDS: MONTELUKAST NA 10 MG TABLET PO SCH (23:08)
[2022-10-24] MEDS: ATORVASTATIN CA 40 MG TABLET (FP) PO SCH (23:13)
[2022-10-25] MEDS: FUROSEMIDE 40 MG TABLET (FP) PO SCH ×2 (06:18→13:30)
[2022-10-25] MEDS: METOPROLOL TARTRATE 25 MG TABLET (FP) PO SCH ×3 (06:18→21:14)
[2022-10-25] MEDS: VANCOMYCIN/WATER FOR INJ (PEG) 1,000 MG/200 ML BAG IVPB SCH (06:19)
[2022-10-25] MEDS: INSULIN SLIDING SCALE (NOVOLOG) 1 VIAL SQ SCH ×4 (06:40→21:17)
[2022-10-25] MEDS: CLOPIDOGREL BISULFATE 75 MG TABLET (FP) PO SCH (09:58)
[2022-10-25] MEDS: ASPIRIN 81 MG CHEWABLE TABLETS PO SCH (09:58)
[2022-10-25] MEDS: ALLOPURINOL 100 MG TABLET (FP) PO SCH (09:58)
[2022-10-25] MEDS: FAMOTIDINE 20 MG TABLET PO SCH ×2 (09:58→21:13)
[2022-10-25] MEDS: DULoxetine HCL 30 MG CAPSULE.DR PO SCH (09:58)
[2022-10-25] MEDS: FLUTICASONE/UMECLIDIN/VILANTER(100-62.5-25 TRELEGY ELLIPTA) INAHLER IH SCH (11:08)
[2022-10-25] MEDS: QUEtiapine FUMARATE 25 MG TABLET PO SCH (21:15)
[2022-10-25] MEDS: MONTELUKAST NA 10 MG TABLET PO SCH (21:18)
[2022-10-25] MEDS: ATORVASTATIN CA 40 MG TABLET (FP) PO SCH (21:18)
[2022-10-26] MEDS: METOPROLOL TARTRATE 25 MG TABLET (FP) PO SCH ×2 (05:36→13:12)
[2022-10-26] MEDS: FUROSEMIDE 40 MG TABLET (FP) PO SCH ×2 (05:36→13:12)
[2022-10-26] MEDS: INSULIN SLIDING SCALE (NOVOLOG) 1 VIAL SQ SCH ×3 (06:09→16:31)
[2022-10-26] MEDS: DULoxetine HCL 30 MG CAPSULE.DR PO SCH (10:09)
[2022-10-26] MEDS: ALLOPURINOL 100 MG TABLET (FP) PO SCH (10:09)
[2022-10-26] MEDS: FAMOTIDINE 20 MG TABLET PO SCH (10:09)
[2022-10-26] MEDS: CLOPIDOGREL BISULFATE 75 MG TABLET (FP) PO SCH (10:09)
[2022-10-26] MEDS: ASPIRIN 81 MG CHEWABLE TABLETS PO SCH (10:09)
[2022-10-26] MEDS: FLUTICASONE/UMECLIDIN/VILANTER(100-62.5-25 TRELEGY ELLIPTA) INAHLER IH SCH (10:10)
[2022-10-26 18:20] VITALS: RESP 18; TEMP 97.6
[2022-10-26 18:23] VITALS: BP 114/63; PULSE 90
== END 2022-10-26 22:30 | DRG 271 ==
LOC: JER 11:11 → JERBED 13:22 → J5S 17:13 → J7W 10-24 16:56
PROVIDERS: ADMIT Family Medicine; ATTEND Family Medicine
PROC: 04CN3ZZ Extirpation of Matter from Left Popliteal Artery, Percutaneous Approach (ICD-10-PCS; 2022-10-24)
PROC: 06CN3ZZ Extirpation of Matter from Left Femoral Vein, Percutaneous Approach (ICD-10-PCS; 2022-10-24)
PROC: 047L3ZZ Dilation of Left Femoral Artery, Percutaneous Approach (ICD-10-PCS; 2022-10-24)
PROC: 047N3ZZ Dilation of Left Popliteal Artery, Percutaneous Approach (ICD-10-PCS; 2022-10-24)
PROC: B50CYZZ Plain Radiography of Left Lower Extremity Veins using Other Contrast (ICD-10-PCS; 2022-10-24)
PROC: B40DYZZ Plain Radiography of Aorta and Bilateral Lower Extremity Arteries using Other Contrast (ICD-10-PCS; principal; 2022-10-24 13:30)
DX: E11.51 Type 2 diabetes mellitus with diabetic peripheral angiopathy without gangrene (principal); I50.32 Chronic diastolic (congestive) heart failure; L97.828 Non-pressure chronic ulcer of other part of left lower leg with other specified severity; L02.416 Cutaneous abscess of left lower limb; L03.032 Cellulitis of left toe; I25.10 Atherosclerotic heart disease of native coronary artery without angina pectoris; I70.222 Atherosclerosis of native arteries of extremities with rest pain, left leg; I11.0 Hypertensive heart disease with heart failure; J44.9 Chronic obstructive pulmonary disease, unspecified; G47.33 Obstructive sleep apnea (adult) (pediatric); I48.91 Unspecified atrial fibrillation; E11.622 Type 2 diabetes mellitus with other skin ulcer; M54.9 Dorsalgia, unspecified; R20.0 Anesthesia of skin; Z95.1 Presence of aortocoronary bypass graft; Z96.641 Presence of right artificial hip joint; Z95.0 Presence of cardiac pacemaker
CPT/HCPCS: 36415; 71045-TC-FY; 76000-TC-FY; 80053; 81003; 82962; 83540; 83550; 83735; 84443; 84550; 85025; 85027; 85610; 85651; 86140; 86850; 86900; 86901; 87040; 93005; 93010; 93922; 93925-TC; 94660; 94760; 99285-25; C1725; C1760; C1769; C1876; C9803-CS; G0463-25; G0480; J1644; U0003; U0005

== ENCOUNTER 2024-03-11 09:11 | Inpatient (IN) | payer OTHER ==
[2024-03-11 11:01] LABS: PH,URINE 5.5 (5.0-8.0); URINE APPEARANCE CLEAR; URINE BILIRUBIN NEGATIVE (NEGATIVE); URINE COLOR YELLOW; URINE GLUCOSE (UA) NEGATIVE (NEGATIVE); URINE KETONE NEGATIVE (NEGATIVE); URINE LEUK ESTERASE NEGATIVE (NEGATIVE); URINE NITRITE NEGATIVE (NEGATIVE); URINE PROTEIN NEGATIVE (NEGATIVE)
[2024-03-11 11:03] LABS: BASO % 1.5 % (0-2.0); HEMOGLOBIN 9.3 GM/dL (11.7-16.9); LYMPH % 12.4 % (8-40); MCHC 29.2 g/dl (32.0-35.9); MEAN CELL VOLUME 62.9 fl (80-96); MEAN PLT VOLUME 8.1 fl (7.5-11.1); MONO % 8.9 % (3.8-10.2); NEUT % 72.2 % (42.8-82.8); PLATELET COUNT 393 10^3/uL (134-434); RBC 5.08 M/mm3 (4.00-5.60); RDW 22.2 % (11.9-15.9); WHITE BLOOD COUNT 6.6 K/mm3 (4.0-10.0)
[2024-03-11 11:05] LABS: MCH 18.3 pg (25.7-33.7)
[2024-03-11 11:22] LABS: POTASSIUM 4.5 mmol/L (3.5-5.1)
[2024-03-11 11:24] LABS: BLOOD UREA NITROGEN 15.2 mg/dL (7-18); CALCIUM 8.1 mg/dL (8.5-10.1); MAGNESIUM 2.7 mg/dL (1.8-2.4)
[2024-03-11 11:27] LABS: CREATININE 0.8 mg/dL (0.55-1.3)
[2024-03-11 11:28] LABS: TOT PROT 6.7 g/dl (6.4-8.2)
[2024-03-11 12:03] LABS: ANISOCYTOSIS 3+; MACROCYTOSIS 0
[2024-03-11] MEDS ORDERED: ACETAMINOPHEN 325 MG TABLET (FP) ONE (18:11)
[2024-03-11 18:39] LABS: N-TERMINAL BNP 3098.1 pg/ml (5-125)
[2024-03-11] MEDS: ACETAMINOPHEN 325 MG TABLET (FP) PO ONE (19:44)
[2024-03-11] MEDS: RIVAROXABAN 20 MG TABLET PO SCH (21:07)
[2024-03-12] MEDS ORDERED: METOPROLOL TARTRATE 25 MG TABLET (FP) ONE (00:27)
[2024-03-12] MEDS: METOPROLOL TARTRATE 25 MG TABLET (FP) PO SCH (00:43)
[2024-03-12] MEDS ORDERED: FUROSEMIDE 40 MG TABLET (FP) ONE (06:26)
[2024-03-12] MEDS: FUROSEMIDE 40 MG TABLET (FP) PO SCH (06:29)
[2024-03-12 06:43] LABS: BASO % 2.1 % (0-2.0); EOS % 5.6 % (0-4.5); HEMATOCRIT 30.2 % (35.4-49); HEMOGLOBIN 8.7 GM/dL (11.7-16.9); MCHC 28.8 g/dl (32.0-35.9); MEAN CELL VOLUME 63.2 fl (80-96); MONO % 9.3 % (3.8-10.2); PLATELET COUNT 366 10^3/uL (134-434); RBC 4.78 M/mm3 (4.00-5.60); RDW 22.1 % (11.9-15.9)
[2024-03-12 07:01] LABS: MCH 18.2 pg (25.7-33.7)
[2024-03-12 07:06] LABS: CHOLESTEROL 75 mg/dL (50-200)
[2024-03-12 07:08] LABS: LDL CHOLESTEROL (ONLY SJRH) 33 mg/dL (5-100); POTASSIUM 4.2 mmol/L (3.5-5.1)
[2024-03-12 07:10] LABS: HDL CHOLESTEROL 32 mg/dL (40-60)
[2024-03-12 07:11] LABS: CALCIUM 8.2 mg/dL (8.5-10.1)
[2024-03-12 07:12] LABS: ALBUMIN 2.9 g/dl (3.4-5.0); BLOOD UREA NITROGEN 17.4 mg/dL (7-18); MAGNESIUM 2.5 mg/dL (1.8-2.4)
[2024-03-12 07:14] LABS: CREATININE 0.9 mg/dL (0.55-1.3)
[2024-03-12 07:16] LABS: BILIRUBIN,TOTAL 0.9 mg/dL (0.2-1); PHOSPHOROUS 3.8 mg/dL (2.5-4.9); TOT PROT 6.2 g/dl (6.4-8.2)
[2024-03-12] MEDS ORDERED: LEVOTHYROXINE NA 100 MCG TABLET (FP) ONE (08:20)
[2024-03-12] MEDS: LEVOTHYROXINE NA 100 MCG TABLET (FP) PO SCH (08:23)
[2024-03-12] MEDS ORDERED: CLOPIDOGREL BISULFATE 75 MG TABLET (FP) ONE (10:36)
[2024-03-12] MEDS: DULoxetine HCL 30 MG CAPSULE.DR PO SCH (10:40)
[2024-03-12] MEDS: CLOPIDOGREL BISULFATE 75 MG TABLET (FP) PO SCH (10:40)
[2024-03-12] MEDS: FLUTICASONE/UMECLIDIN/VILANTER(100-62.5-25 TRELEGY ELLIPTA) INAHLER IH SCH (11:17)
[2024-03-12 16:39] VITALS: BMI 32.1
[2024-03-12] MEDS: ACETAMINOPHEN 1000 MG/100 ML BAG IVPB ONE (20:32)
[2024-03-12] MEDS: MONTELUKAST NA 10 MG TABLET PO SCH (21:13)
[2024-03-12] MEDS: ATORVASTATIN CA 40 MG TABLET (FP) PO SCH (21:14)
[2024-03-12] MEDS: INSULIN ASPART SLIDING SCALE (NOVOLOG) 1 VIAL SQ SCH (21:17)
[2024-03-13] MEDS ORDERED: INSULIN ASPART SLIDING SCALE (NOVOLOG) 1 VIAL SQ ONE (06:33)
[2024-03-13] MEDS: INSULIN ASPART SLIDING SCALE (NOVOLOG) 1 VIAL SQ SCH (06:50)
[2024-03-13] MEDS: FUROSEMIDE 40 MG/4 ML INJECTABLE VIAL IVPUSH SCH (13:37)
[2024-03-13] MEDS: IRON SUCROSE INJECTION 200 MG in SODIUM CHLORIDE 100 ML IVPB ONE (15:57)
[2024-03-13] MEDS: oxyCODONE HCL 5 MG TABLET PO PRN (21:39)
[2024-03-13] MEDS ORDERED: QUEtiapine FUMARATE 25 MG TABLET PO SCH (22:00)
[2024-03-14] MEDS: ACETAMINOPHEN 1000 MG/100 ML BAG IVPB ONE (02:02)
[2024-03-14] MEDS: oxyCODONE HCL 5 MG TABLET PO ONE (02:02)
[2024-03-14] MEDS: HEPARIN INFUSION - 25,000 UNITS/500 ML INFUS.BAG IVPB SCH (10:00)
[2024-03-14] MEDS: ACETAMINOPHEN 1000 MG/100 ML BAG IVPB PRN (21:10)
[2024-03-15] MEDS: HEPARIN NA (PORCINE) 5,000 UNITS/ML 1ML VIAL IVPUSH PRN (01:54)
[2024-03-15 07:01] LABS: HEMOGLOBIN 9.3 GM/dL (11.7-16.9); MEAN CELL VOLUME 63.4 fl (80-96); MEAN PLT VOLUME 8.3 fl (7.5-11.1); PLATELET COUNT 345 10^3/uL (134-434); RBC 5.04 M/mm3 (4.00-5.60); RDW 22.4 % (11.9-15.9); WHITE BLOOD COUNT 7.6 K/mm3 (4.0-10.0)
[2024-03-15 07:03] LABS: MCH 18.4 pg (25.7-33.7)
[2024-03-15 07:15] LABS: CALCIUM 8.4 mg/dL (8.5-10.1)
[2024-03-15 07:16] LABS: ALBUMIN 3.1 g/dl (3.4-5.0); BLOOD UREA NITROGEN 22.2 mg/dL (7-18); MAGNESIUM 2.8 mg/dL (1.8-2.4)
[2024-03-15 07:19] LABS: CREATININE 0.9 mg/dL (0.55-1.3)
[2024-03-15 07:20] LABS: BILIRUBIN,TOTAL 1.3 mg/dL (0.2-1); TOT PROT 6.8 g/dl (6.4-8.2)
[2024-03-15] MEDS: oxyCODONE HCL 5 MG TABLET PO PRN (21:02)
[2024-03-16] MEDS: ACETAMINOPHEN 1000 MG/100 ML BAG IVPB ONE (06:21)
[2024-03-16 07:51] LABS: HEMATOCRIT 30.9 % (35.4-49); HEMOGLOBIN 8.9 GM/dL (11.7-16.9); MCHC 28.8 g/dl (32.0-35.9); MEAN CELL VOLUME 64.4 fl (80-96); PLATELET COUNT 318 10^3/uL (134-434); RDW 22.1 % (11.9-15.9); WHITE BLOOD COUNT 7.4 K/mm3 (4.0-10.0)
[2024-03-16 07:52] LABS: MCH 18.6 pg (25.7-33.7)
[2024-03-16] MEDS: ACETAMINOPHEN 500 MG TABLET (FP) PO PRN (21:26)
[2024-03-17 09:32] LABS: HEMOGLOBIN 9.5 GM/dL (11.7-16.9); MCHC 28.7 g/dl (32.0-35.9); MEAN CELL VOLUME 64.5 fl (80-96); MEAN PLT VOLUME 8.2 fl (7.5-11.1); PLATELET COUNT 330 10^3/uL (134-434); RBC 5.11 M/mm3 (4.00-5.60); RDW 22.9 % (11.9-15.9); WHITE BLOOD COUNT 6.5 K/mm3 (4.0-10.0)
[2024-03-17 09:35] LABS: MCH 18.5 pg (25.7-33.7)
[2024-03-18 08:51] LABS: HEMATOCRIT 34.2 % (35.4-49); HEMOGLOBIN 9.9 GM/dL (11.7-16.9); MCHC 28.9 g/dl (32.0-35.9); MEAN CELL VOLUME 64.6 fl (80-96); PLATELET COUNT 339 10^3/uL (134-434); RDW 23.2 % (11.9-15.9); WHITE BLOOD COUNT 6.8 K/mm3 (4.0-10.0)
[2024-03-18 08:52] LABS: MCH 18.7 pg (25.7-33.7)
[2024-03-19 10:28] LABS: HEMATOCRIT 32.9 % (35.4-49); HEMOGLOBIN 9.5 GM/dL (11.7-16.9); MCHC 28.9 g/dl (32.0-35.9); MEAN CELL VOLUME 64.1 fl (80-96); MEAN PLT VOLUME 8.3 fl (7.5-11.1); PLATELET COUNT 325 10^3/uL (134-434); RBC 5.13 M/mm3 (4.00-5.60); RDW 23.7 % (11.9-15.9); WHITE BLOOD COUNT 6.2 K/mm3 (4.0-10.0)
[2024-03-19 10:30] LABS: MCH 18.5 pg (25.7-33.7)
[2024-03-19] MEDS: HEPARIN NA (PORCINE) 5,000 UNITS/ML 1ML VIAL IVPUSH PRN (10:36)
[2024-03-19 12:16] LABS: POTASSIUM 4.1 mmol/L (3.5-5.1)
[2024-03-19 12:17] LABS: CALCIUM 8.9 mg/dL (8.5-10.1)
[2024-03-19 12:18] LABS: BLOOD UREA NITROGEN 20.6 mg/dL (7-18)
[2024-03-19 12:21] LABS: CREATININE 0.8 mg/dL (0.55-1.3)
[2024-03-20] MEDS ORDERED: VANCOMYCIN 500 MG VIAL (RESTRICTED TO ID ONLY) ONE (07:08)
[2024-03-20] MEDS ORDERED: TETRACAINE 0.5% OPHTH SOLN 2 ML BOTTLE ONE (07:08)
[2024-03-20] MEDS ORDERED: LIDOCAINE HCL/PF 1% SDV 5ML VIAL ONE (07:08)
[2024-03-20] MEDS ORDERED: EPINEPHrine/PF 1 MG/1 ML (1:1,000) AMPULE ONE (07:08)
[2024-03-20] MEDS ORDERED: POVIDONE-IODINE 5% OPHTHALMIC PREP 30 ML SOLUTION ONE (07:09)
[2024-03-20] MEDS ORDERED: BSS (NA/CA/MG/K) BALANCED SALT SOLUTION OPHTH SOLN 15 ML BOTTLE ONE (07:09)
[2024-03-20] MEDS ORDERED: HEPARIN NA (PORCINE) 5,000 UNITS/ML 1ML VIAL ONE ×3 (07:18→08:55)
[2024-03-20] MEDS ORDERED: LIDOCAINE HCL 1%, 10 MG/ML (20ML VIAL) ONE (07:18)
[2024-03-20] MEDS ORDERED: DEXAMETHASONE SOD PHOSPHATE 4 MG/1 ML VIAL ONE (07:39)
[2024-03-20] MEDS ORDERED: ONDANSETRON 4 MG/2 ML VIAL ONE (07:39)
[2024-03-20] MEDS ORDERED: ceFAZolin SODIUM 1 GM VIAL ONE (07:39)
[2024-03-20] MEDS ORDERED: PHENYLEPHRINE HCL 10 MG/1 ML SINGLE DOSE VIAL ONE (07:44)
[2024-03-20 07:50] LABS: BASO % 1.2 % (0-2.0); EOS % 3.6 % (0-4.5); HEMATOCRIT 33.1 % (35.4-49); HEMOGLOBIN 9.6 GM/dL (11.7-16.9); LYMPH % 13.8 % (8-40); MCH 18.8 pg (25.7-33.7); MEAN CELL VOLUME 64.8 fl (80-96); MONO % 8.8 % (3.8-10.2); NEUT % 72.6 % (42.8-82.8); PLATELET COUNT 353 10^3/uL (134-434); RDW 24.1 % (11.9-15.9); WHITE BLOOD COUNT 6.4 K/mm3 (4.0-10.0)
[2024-03-20 07:51] LABS: INR 1.07 (0.83-1.09); PROTHROMBIN TIME (PATIENT) 12.3 SEC (9.7-13.0)
[2024-03-20 07:54] LABS: ACTIVATED PTT 32.4 SECONDS (25.2-36.5)
[2024-03-20 08:13] LABS: POTASSIUM 4.2 mmol/L (3.5-5.1)
[2024-03-20 08:22] LABS: ALBUMIN 3.2 g/dl (3.4-5.0); BLOOD UREA NITROGEN 23.1 mg/dL (7-18)
[2024-03-20 08:25] LABS: CREATININE 0.8 mg/dL (0.55-1.3)
[2024-03-20 08:26] LABS: TOT PROT 6.9 g/dl (6.4-8.2)
[2024-03-20] MEDS ORDERED: MIDAZOLAM HCL 2 MG/2 ML SINGLE DOSE VIAL ONE ×2 (08:28→08:57)
[2024-03-20] MEDS: LIDOCAINE HCL 1%, 10 MG/ML (50 mL VIAL) INF ONE ×2 (08:43)
[2024-03-20] MEDS ORDERED: MAGNESIUM SULF 50% (8.12 MEQ/2 ML-1 GM VIAL) ONE (08:48)
[2024-03-20] MEDS ORDERED: LIDOCAINE HCL/PF 2% SDV 5ML VIAL ONE (08:55)
[2024-03-20] MEDS ORDERED: SUCCINYLCHOLINE CHLORIDE 200 MG/10 ML SYRINGE ONE (09:26)
[2024-03-20 09:32] LABS: ANISOCYTOSIS 2+; MACROCYTOSIS 1+; OVALOCYTE 1+
[2024-03-20] MEDS ORDERED: HEPARIN NA (PORCINE) 5,000 UNITS/ML 1ML VIAL IVPUSH PRN ×3 (10:08)
[2024-03-20] MEDS: HEPARIN INFUSION - 25,000 UNITS/500 ML INFUS.BAG IVPB SCH (10:57)
[2024-03-20] MEDS: ASPIRIN 81 MG CHEWABLE TABLETS PO SCH (11:28)
[2024-03-20] MEDS: ACETAMINOPHEN 500 MG TABLET (FP) PO PRN (11:58)
[2024-03-20] MEDS: INSULIN ASPART SLIDING SCALE (NOVOLOG) 1 VIAL SQ SCH (12:13)
[2024-03-20] MEDS: CLOTRIMAZOLE/BETAMET DIPROP 15 GM TUBE TP SCH (13:03)
[2024-03-20] MEDS: FUROSEMIDE 40 MG/4 ML INJECTABLE VIAL IVPUSH SCH (13:45)
[2024-03-20] MEDS: HEPARIN NA (PORCINE) 5,000 UNITS/ML 1ML VIAL IVPUSH PRN (19:04)
[2024-03-20] MEDS: METOPROLOL TARTRATE 25 MG TABLET (FP) PO SCH (21:31)
[2024-03-20] MEDS: MONTELUKAST NA 10 MG TABLET PO SCH (21:31)
[2024-03-20] MEDS: ATORVASTATIN CA 40 MG TABLET (FP) PO SCH (21:31)
[2024-03-20] MEDS ORDERED: METOPROLOL TARTRATE 25 MG TABLET (FP) PO SCH (22:00)
[2024-03-21] MEDS: LEVOTHYROXINE NA 100 MCG TABLET (FP) PO SCH (06:23)
[2024-03-21] MEDS: FUROSEMIDE 40 MG TABLET (FP) PO SCH (06:29)
[2024-03-21] MEDS: DULoxetine HCL 30 MG CAPSULE.DR PO SCH (09:50)
[2024-03-21] MEDS: FLUTICASONE/UMECLIDIN/VILANTER(100-62.5-25 TRELEGY ELLIPTA) INAHLER IH SCH (09:52)
[2024-03-21 15:35] VITALS: RESP 18; TEMP 98.1
[2024-03-21] MEDS: RIVAROXABAN 20 MG TABLET PO SCH (17:33)
[2024-03-21 21:19] VITALS: BP 140/72; PULSE 70
== END 2024-03-21 23:45 | DRG 270 ==
LOC: JER 09:11 → JERBED 12:44 → J4S 03-12 13:59 → OBSVTOIN 03-13 10:44 → J6S 03-20 17:23
PROVIDERS: ADMIT Family Medicine; ATTEND Family Medicine
PROC: 04CK3ZZ Extirpation of Matter from Right Femoral Artery, Percutaneous Approach (ICD-10-PCS; 2024-03-20)
PROC: B300ZZZ Plain Radiography of Thoracic Aorta (ICD-10-PCS; 2024-03-20)
PROC: B40FYZZ Plain Radiography of Right Lower Extremity Arteries using Other Contrast (ICD-10-PCS; 2024-03-20)
PROC: 047K3ZZ Dilation of Right Femoral Artery, Percutaneous Approach (ICD-10-PCS; principal; 2024-03-20 08:00)
DX: I11.0 Hypertensive heart disease with heart failure (principal); I50.33 Acute on chronic diastolic (congestive) heart failure; J98.11 Atelectasis; I31.39 Other pericardial effusion (noninflammatory); E11.51 Type 2 diabetes mellitus with diabetic peripheral angiopathy without gangrene; I42.1 Obstructive hypertrophic cardiomyopathy; J44.9 Chronic obstructive pulmonary disease, unspecified; I25.10 Atherosclerotic heart disease of native coronary artery without angina pectoris; I25.2 Old myocardial infarction; E03.9 Hypothyroidism, unspecified; I48.91 Unspecified atrial fibrillation; I08.3 Combined rheumatic disorders of mitral, aortic and tricuspid valves; R91.1 Solitary pulmonary nodule; E78.5 Hyperlipidemia, unspecified; I70.291 Other atherosclerosis of native arteries of extremities, right leg; M79.89 Other specified soft tissue disorders; G47.33 Obstructive sleep apnea (adult) (pediatric); R06.02 Shortness of breath; Z95.0 Presence of cardiac pacemaker; E66.9 Obesity, unspecified; Z68.32 Body mass index [BMI] 32.0-32.9, adult
CPT/HCPCS: 36415; 71045-TC-FY; 71250-TC; 75635-TC; 76000-TC-FY; 80048; 80053; 80061; 81003; 82272; 82728; 82962; 83540; 83550; 83735; 83880; 84100; 84443; 84484; 85025; 85027; 85610; 85730; 86922; 87086; 93005; 93010; 93306-TC; 93926-TC; 93970-TC; 94760; 97116-GP; 97161-GP; 99285-25; C1760; C1769; G0378; J0131; J1644; J1756